=== PATIENT | female | born 1960 | race Caucasian/White ===

== ENCOUNTER 2018-07-29 12:09 | Day surgery (SDC) | payer OTHER, MEDICAID, SELFPAY ==
[2018-07-29] VITALS (9 sets, daily range): BP systolic 102–134; BP diastolic 52–75; PULSE 62–74; RESP 12–21; TEMP 36.3–36.8; O2SAT 97–100; BMI 25.2
--- NOTE | 2018-07-29 | PATH_ITS ---
[facility] Accession Number: [id number] . 01 Material submitted: . RANDOM COLON BIOPSIES . 02 Diagnosis: Random Colon Biopsies: Changes of minimally active colitis with multiple mucosal granulomas. Negative for significant architectural distortion. Negative for dysplasia and malignancy. See comment. . . . COMMENT: The changes present here are nonspecific. There is no evidence of chronicity to the process and the differential diagnosis would include possible early Crohn's disease, possible infection or possible drug reaction. Clinical correlation is suggested. . Case reviewed by Dr. Jennifer Earl, who concurs with the diagnosis. MRV/07/30/2018 . 02 Electronically signed: . Mikhail Castorena MD, Pathologist NPI- [id number] . 01 Gross description: . Received in one formalin-filled container, labeled with the patient's name and labeled random colon, are multiple less than 0.1 cm to 0.4 cm portions of tissue, which are filtered, wrapped, and entirely submitted in one cassette. ([id number]) /FRR . 02 Pathologist provided ICD-10: K52.9 . 02 CPT . 809615 Performed at: [address] [facility] [address], [place], [place] [id number] MD Norman Burnett MD Phone: [phone] Performed at: 02 [facility] [address] [place], [place] [id number] MD Jennifer Earl MD Phone: [phone]
[2018-07-29] MEDS: LACTATED RINGERS 1,000 ML 42 ML IV (12:35)
--- NOTE | 2018-07-29 14:04 | PM.PREOP ---
Pre-operative Note Interval Note History & Physical reviewed/Exam performed by Physician: Yes Changes to H&P: No
--- NOTE | 2018-07-29 14:44 | P.OP_ITS ---
Operative Date/Time/Diagnoses Date of procedure: 07/29/18 Time of procedure: 14:44 Pre-op diagnosis: Screening study Grade 3 internal hemorrhoids Post-op diagnosis: same Procedure & Clinicians Procedure: Colonoscopy with mucosal biopsies and internal hemorrhoid banding Same procedure as scheduled: Yes Indications: No prior colonoscopy Surgeon: Lily Baker Click Yes if Unassisted: Yes Anesthesia Type: General (Bertoni) Operative Notes Findings: 1. Adequate prep 2. Significant diverticulosis between 15 and 30 cm from the anal verge with large and small pockets and false passages. There is inflammation of the mucosa in the general region. No gross evidence of active colitis. 3. No polyps or mass lesions 4. No AV malformations 5. A single grade 3-4 internal hemorrhoid. Closure Type: not applicable Specimen(s): other (Random cold forceps mucosal biopsies) Estimated Blood Loss (mL): 1 Procedure in detail: After obtaining informed consent, the patient was brought to the GI suite and placed in the left lateral decubitus position on the examination table. After placement of appropriate monitors, the patient was given general anesthesia. A time out was held per SCOAP protocol. A digital rectal examination was performed and did not reveal any masses or o bstructing lesions. The colonoscope was gently passed into the patient's anus and the entire colon navigated to the level of the cecum with minimal difficulty. Once in the cecum, the scope was withdrawn being sure to go before and beyond all mucosal folds and prominences and get an excellent examination. The findings are noted above. At the level of the rectal vault, the scope was retroflexed and the internal anal canal was examined. The scope was straightened and air aspirated from the colon. The instrument was removed from the patient's body and this portion of the procedure was concluded. We continued with internal hemorrhoid banding. The retractor was placed in the patient's anal canal. We noted an enlarged hemorrhoid complex at the 6:00 a.m. Radian in lithotomy position. This was well above the dentate line. The mucosa and associated offending vein were grasped with Allis clamp and 2 bands deployed at the base of the complex. No bleeding was appreciated. The remainder of the internal hemorrhoids were grade 1 or 2. The patient was allowed to awaken from sedation without difficulty and taken to the post-anesthesia care unit in good condition. Complications: none Condition: stable Disposition: PACU Plan for aftercare: 1. Discharge to home 2. Follow-up with me in my office in 2 weeks
== END 2018-07-29 16:20 | disposition home or self-care (01) ==
PROVIDERS: Visit Provider Surgery
PROC: 0DJD8ZZ Inspection of Lower Intestinal Tract, Via Natural or Artificial Opening Endoscopic (ICD-10-PCS; CPT 45378; principal; 2018-07-29 13:15)
DX: Z12.11 Encounter for screening for malignant neoplasm of colon (principal); K64.2 Third degree hemorrhoids; K57.30 Diverticulosis of large intestine without perforation or abscess without bleeding; K52.9 Noninfective gastroenteritis and colitis, unspecified
CPT/HCPCS: 45380; 46221; 88305; J2250; J2704; J3010

== ENCOUNTER → 2019-06-15 14:47 | Outpatient (CLI) | payer OTHER, MEDICAID, SELFPAY | PROVIDERS: PCP Physician Assistant Medical; Visit Provider Orthopaedic Surgery | DX: Z01.812 Encounter for preprocedural laboratory examination (principal); Z01.818 Encounter for other preprocedural examination; R73.9 Hyperglycemia, unspecified; Z13.1 Encounter for screening for diabetes mellitus; N39.9 Disorder of urinary system, unspecified | CPT/HCPCS: 93005 ==

== ENCOUNTER 2019-08-05 11:37 | Inpatient (IN) | payer OTHER, MEDICAID, SELFPAY ==
[2019-07-26 08:44] VITALS: BMI 26.2
[2019-08-05] VITALS (13 sets, daily range): BP systolic 102–123; BP diastolic 59–71; PULSE 57–75; RESP 12–20; TEMP 36.1–36.9; O2SAT 92–98; BMI 26.2
--- NOTE | 2019-08-05 12:26 | DI.RAD.S_ITS ---
PROCEDURE: XR KNEE LT 1TO2V INDICATIONS: post op films TECHNIQUE: 2 view(s) of the knee acquired. COMPARISON: None. FINDINGS: Bones: Patient is status post knee joint arthroplasty. Hardware components are in expected positions. Visualized bony structures are intact. Soft tissues: Overlying postoperative changes are noted. IMPRESSION: Normal alignment after left total knee arthroplasty. Dictated by: Alonzo Cantrell M.D. on 08/05/2019 at 17:08 Approved by: Alonzo Cantrell M.D. on 08/05/2019 at 17:08
--- NOTE | 2019-08-05 12:31 | PM.PREOP ---
Pre-operative Note Interval Note History & Physical reviewed/Exam performed by Physician: Yes Changes to H&P: No
[2019-08-05] MEDS: VANCOMYCIN 1,000 MG/200 ML PIGGYBACK 200 MG IV (12:32)
[2019-08-05] MEDS: LACTATED RINGERS 1,000 ML 42 ML IV ×2 (12:32→15:19)
[2019-08-05] MEDS: CELECOXIB 200 MG CAPSULE PO (12:36)
[2019-08-05] MEDS: PREGABALIN 75 MG CAPSULE PO (12:36)
[2019-08-05] MEDS: ACETAMINOPHEN 325 MG TABLET 975 MG PO (12:36)
[2019-08-05] MEDS: CEFAZOLIN 2 GM/100 ML FROZ.PIGGY IV ×2 (13:31→20:12)
[2019-08-05] MEDS: DEXAMETHASONE 10 MG/ML VIAL 5 MG INJ (13:31)
[2019-08-05] MEDS: TRANEXAMIC ACID 1,000 MG VIAL 1000 MG INJ ×2 (13:45→15:17)
--- NOTE | 2019-08-05 13:58 | SUR.OPER ---
Supine on padded OR bed. Pillow under head, arms secured on padded armboards <90 degree abduction. Safety belt across torso. Non-operative leg secured with tape over blanket over lower leg. Operative leg secured in DeMayo positioner. Foam padded brace at thigh of operative leg.
[2019-08-05] MEDS: BUPIVACAINE LIPOSOME 266 MG/20 ML VIAL INJ (14:04)
[2019-08-05] MEDS: BUPIVACAINE 0.25% W/ EPI 30 ML VIAL 60 ML INJ (14:12)
--- NOTE | 2019-08-05 15:42 | PM.OP.1 ---
Operative Date/Time/Diagnoses Date of procedure: 08/05/19 Time of procedure: 13:42 Pre-op diagnosis: Severe left knee OA Post-op diagnosis: same Procedure & Clinicians Procedure: Left total knee arthroplasty, right foot plantar fasciitis injection Same procedure as scheduled: Yes Indications: The patient has had progressively worsening left knee pain with radiographic changes consistent with arthritis. Non-operative management has failed and the patient has requested total knee replacement. The risks, benefits and alternatives to surgery were discussed with the patient prior to proceeding. Risks discussed included, but were not limited to, failure to relieve pain, stiffness, infection, nerve damage, deep venous thrombosis, pulmonary embolism, stroke, coma, heart attack, permanent paralysis and , as well as the potential need for eventual revision of the prosthetic. Surgeon: Zahida Ferraro Casing Man: Alden Lino Anesthesia Type: General Operative Notes Findings: Severe left knee osteoarthritis, good stability Closure Type: primary Specimen(s): none sent Prosthetic devices, grafts, tissues, transplants, or devices: Ferraro and Nephew Journey BCS 2 size 5 femur, size 4 tibia, +9 poly, 35 by 7-1/2 mm patella Applied: drain(s) Estimated Blood Loss (mL): 250 Blood products transfused: none Tourniquet time (min): 78 Procedure in detail: The patient was seen in the pre-operative area, where the patient identified the left knee as the operative site and this was marked with my initials. The patient received pre-operative antibiotics, and was taken to the operating room and placed on the operative table in the supine position. After satisfactory anesthesia, a multimedia developer out was performed. The left leg was encircled with a tourniquet about the proximal thigh, and the leg was prepared from the toes to the tourniquet with ChloroPrep in the usual fashion and draped through sterile drapes. The leg was elevated and exsanguinated with Eschmark bandage and the tourniquet inflated to [250] mmHg pressure. The knee was approached through an approximately 18 cm incision centered over the patella and carried into the knee through a medial parapatellar arthrotomy. A portion of the medial and lateral meniscus was resected. Soft tissue was carefully mobilized around the patella the patella was measured with a caliper. Bone was resected from the patella and the patellar height was reconstituted with up an appropriate sized patellar component. A cover was then placed on the patella. A small amount of additional medial and lateral meniscus was resected. The distal femur was cut at 5?. A [+2] cut was used. It looked like an appropriate distal femoral cut and the cut was made without difficulty. An extramedullary guide was used for the tibial cut. 10 mm was resected off the least affected side.The tibia was prepared. The rotation was assessed. The patient was placed in extension residual medial and lateral meniscus as well as any residual bone was carefully resected. [No] additional tibia was resected. Hemostasis was achieved especially posteriorly. Additional local was injected into the posterior capsule. The extension gap was assessed and additional releases for gap balancing were performed as necessary. It was checked with the gap production superintendent. The femoral Sizer for measured resection as well as the gap production superintendent in flexion were used to assess the overall rotation and component positioning. The femur was sized at a size 5 and the rotational landmarks as well as the measured resection and gap balancing essentially placed the component in the same location. The rotation was assessed and the appropriate size femoral guide was placed on the distal femur and finishing cuts were made. There was no evidence of notching. The anterior, posterior and chamfer cuts were then made. The posterior osteophytes and soft tissues were then removed. The posterior capsule was injected with part of a mixture of 60 ml 0.25% Marcaine mixed with 20 ml Exparel for post operative pain control. The remainder of this mixture was injected into the capsule and subcutaneous tissues during cement curing. The tibial and femoral components were then placed and the knee placed through a range of motion. Range of motion was [0-130], with good stability throughout the range. The trials were then removed, and the tibia was finished. The bone was prepared with pulsatile lavage, and dried with a sponge. Cement was applied and the final prosthetics placed. Excess cement was removed during and after cement curing. A brief Betadine soak was performed. After confirming there was no extruded cement posteriorly, the final tibial insert was placed. The knee was copiously irrigated and the tourniquet deflated. Hemostasis was obtained with the Bovie. A drain was placed and brought out superolaterally. The capsule was closed with interrupted nonabsorbable suture. The subcutaneous layer was closed with barbed sutures, and the skin with a running 3-0 V-Lock suture and Surgical glue. An Aquacel Ag dressing was applied and the patient was taken to recovery having tolerated the procedure well. Complications: none Post-operative Condition: stable Disposition: Acute Care Plan for aftercare: The patient will be maintained on a standard total knee replacement protocol with weight bearing as tolerated. The patient will receive aspirin and sequential compression devices for DVT prophylaxis. The patient will be discharged home when safe for the home environment.
[2019-08-05] MEDS: OXYCODONE IR 5 MG TABLET PO ×2 (16:07→20:11)
--- NOTE | 2019-08-05 16:41 | PC.ADMIT ---
[facility] Admission Note: The patient,Ghazala Smith,59 y/o, was given written information regarding hospital policies, unit procedures and contact persons. Patient's smoking status: Never smoker. Vital Signs - 8 hr 08/05/19 12:05 08/05/19 15:42 08/05/19 15:47 Temperature 98.4 F 97.8 F Pulse Rate 68 66 65 Respiratory Rate 20 14 12 Blood Pressure 121/61 102/60 109/66 Pulse Oximetry 97 97 98 08/05/19 15:57 08/05/19 16:12 08/05/19 16:17 Temperature Pulse Rate 66 57 L 59 L Respiratory Rate 16 16 16 Blood Pressure 112/68 117/71 114/68 Pulse Oximetry 95 98 98 08/05/19 16:25 Temperature Pulse Rate 60 Respiratory Rate 14 Blood Pressure 113/67 Pulse Oximetry 93 Patient up from PACU, awake but drowsy. Answers questions appropriately. Was given percolone right before being brought up from PACU. Ice in place on Lf knee, drsg cdi.
[2019-08-05] MEDS: LACTATED RINGERS 1,000 ML 125 ML IV (16:48)
--- NOTE | 2019-08-05 18:01 | PC.NURSE ---
hemovac unclamped at 1750
[2019-08-05] MEDS: IBUPROFEN 400 MG TABLET PO ×2 (18:06→22:12)
[2019-08-05] MEDS: ASPIRIN EC 81 MG TABLET PO (20:11)
[2019-08-05] MEDS: ACETAMINOPHEN 325 MG TABLET 650 MG PO (20:11)
--- NOTE | 2019-08-06 00:36 | DI.CT.S_ITS ---
PROCEDURE: CT STROKE INDICATIONS: Dysarthria TECHNIQUE: Noncontrast 4.5 mm thick angled axial sections acquired from the foramen magnum to the vertex, with coronal reformats. For radiation dose reduction, the following was used: automated exposure control, adjustment of mA and/or kV according to patient size. COMPARISON: None. FINDINGS: Image quality: Excellent. CSF spaces: Basal cisterns are patent. No extra-axial fluid collections. Ventricles are normal in size and shape. Brain: No midline shift. No intracranial masses or hemorrhage. Arias-white matter interface is normal. Skull and face: Calvarium and visualized facial bones are intact, without suspicious lesions. Sinuses: Visualized sinuses and mastoids are clear. IMPRESSION: No acute intracranial disease process. This study fulfills neurological imaging criteria for inclusion or exclusion of acute stroke therapies based on available published neurological imaging guidelines. Dictated by: Jocelynn Ramirez MD, PhD on 08/06/2019 at 7:47 Approved by: Jocelynn Ramirez MD, PhD on 08/06/2019 at 7:49
--- NOTE | 2019-08-06 00:37 | DI.CT.S_ITS ---
PROCEDURE: CT ANGIO HEAD AND NECK INDICATIONS: New onset dysarthria TECHNIQUE: Pre-contrast 4.5 mm thick sections acquired from the foramen magnum to the vertex. After the administration of intravenous contrast, 1 mm thick sections acquired from the aortic arch through the [place] of [place]. Post-contrast 4.5 mm thick sections then re-acquired from the foramen magnum to the vertex. 3-dimensional qxqzgkd-etffqrfnr-ajtmkajwnd (MIP) and/or volume rendering reformats were acquired of the central intracranial vasculature and neck separately. COMPARISON: [facility], CT, CT STROKE, 08/06/2019, 0:36. FINDINGS: Image quality: Excellent. BRAIN: CSF spaces: Ventricles are normal in size and shape. Basal cisterns are patent. No extra-axial fluid collections. Brain: No midline shift. No intracranial bleeds or masses. Arias-white matter interface appears intact. Skull and face: Calvarium and facial bones appear intact, without suspicious lesions. Orbits appear normal. Sinuses: Sinuses and mastoids are clear. HEAD CT ANGIOGRAPHY: Anterior circulation: Intracranial internal carotid arteries are normal in size and flow. The flow within the paired anterior cerebral arteries is normal and symmetric. The flow within the middle cerebral arteries is normal and symmetric. The anterior communicating artery is seen. No aneurysms are seen. Posterior circulation: Visualized portions of the vertebral arteries demonstrate normal caliber, and join to form a normal appearing basilar artery. Flow within the posterior cerebral arteries is normal and symmetric. No aneurysms are seen. The dural sinuses demonstrate normal postcontrast enhancement. NECK CT ANGIOGRAPHY: Carotid system: The great vessels demonstrate a conventional anatomy as they arise from the aortic arch. The origins of the common carotid arteries appear patent. The common carotid arteries demonstrate normal caliber and courses. Calcified atherosclerotic plaque noted in the origin of the right internal carotid artery which does not cause measurable stenosis. Origin of the left internal carotid artery is fully patent. Posterior circulation: The origins of the vertebral arteries both appear widely patent. The more superior extracranial portions of both vertebral arteries also demonstrate normal courses and calibers. They join to form a normal appearing basilar artery. Soft tissues: Visualized neck soft tissues demonstrate no suspicious abnormalities. Bones: No suspicious bony lesions. Spine degenerative disc disease and facet arthropathy. Visualized cervical spine appears normally aligned. IMPRESSION: 1. No acute intracranial disease process. 2. No large vessel occlusion, vascular stenosis, vascular dissection or aneurysm. Any quantitative measurements of stenosis were performed using NASCET criteria. Dictated by: Jocelynn Ramirez MD, PhD on 08/06/2019 at 8:01 Approved by: Jocelynn Ramirez MD, PhD on 08/06/2019 at 8:07
--- NOTE | 2019-08-06 00:37 | PC.NURSE ---
Addendum entered by Chanel Kate R.N. 08/06/19 01:21: Patient back from CT at 0110. Patient was teary, worried that she was being a difficult patient. I assured her this was not the case and we were just trying to take good care of her. Settled her back into bed. Patient has been up to use bedside commode pivot assist. Dressing is clean/dry/intact. CMS is intact. Pain is described as pressure. SCD's are applied bilaterally. IS encouraged. Bed is low and locked, call light within reach, bed alarm on. Original Note: 1031 patient assessment, patient seemed to be have some slurring of speech, difficulty finding words, said she is having a hard time swallowing and no sore throat, also that her right hand had some tingling, and was dizzy when standing. Dr. Lozano director of slot operations doctor called and was told about the patient's status at 0015, and my recommendation was to have the hospitalist doctor look at her and evaluate her. I transferred the phone call to Davon MEYER hospitalist. At 0045, Patient was taken to CT.
--- NOTE | 2019-08-06 00:44 | P.CONS_ITS ---
History of Present Illness Consult details Date Patient Seen: 08/06/19 Time Patient Seen: 00:38 Chief complaint: 14895 Left Total Knee Arthroplasty *OPB* Reason for consult: Possible Stroke Requesting provider: Jose Lozano Narrative: Ms. Ghazala Smith is a 59-year-old female with history significant for hyperlipidemia, vertigo and osteoarthritis status post left total knee arthroplasty earlier today. Nursing is concerned related to dysarthria and possible stroke and contacted Dr. Fernandez who requested hospitalist consult. On evaluation of the patient she is alert and conversant the with slurred speech and difficulty articulating. She additionally reports changes swallowing but denies sore throat and experience tingling in the left hand. The patient denies headache or visual changes and has no aphasia. She has no complaints of extremity weakness and is able to stand without disequilibrium. Patient reports her symptoms of dysarthria has been since her surgery returning to the floor at approximately 5:30 this afternoon. Last known normal is prior to surgery. Patient is afebrile with temperature of 97.5?, heart rate of 75, blood pressure 123/60, respirations of 18 saturating 95% on 2 L nasal cannula. NIH scoring is completed receiving a score of 2, 1 point for dysarthria, 1 point for left hand numbness. Meds Home Medications and Allergies Home Medications Medication Instructions Recorded Confirmed Type cholecalciferol (vitamin D3) 25 2,000 unit PO DAILY 07/14/18 07/26/19 History mcg (1,000 unit) capsule vitamin B complex 1 tab PO DAILY 07/14/18 07/26/19 History naproxen 500 mg PO DAILY PRN 07/26/19 07/26/19 History Allergies Allergy/AdvReac Type Severity Reaction Status Date / Time No Known Drug Allergies Allergy Unverified 07/14/18 10:51 Review of Systems Review of Systems Narrative: All systems reviewed and found unremarkable under discussed in the HPI above. Exam Vital Signs (past 8 hours): - 08/05/19 17:00 08/05/19 17:30 08/05/19 18:30 Temperature 97.1 F L 97.1 F L 97.0 F L Pulse Rate 61 64 68 Respiratory Rate 16 17 18 Blood Pressure 122/71 120/66 118/67 Pulse Oximetry 94 96 92 08/05/19 19:50 Temperature 97.5 F L Pulse Rate 75 Respiratory Rate 18 Blood Pressure 123/60 Pulse Oximetry 95 Oxygen Delivery Method Nasal Cannula Oxygen Flow Rate 2 Narrative Exam Narrative: GENERAL APPEARANCE: well developed, well nourished, in no acute distress. HEENT: Symmetrical facies, no ptosis, PERRLA, conjunctiva clear, EOMs intact without nystagmus, no visual field deficits, mucous membranes are moist and pink. NECK/THYROID: neck supple, no JVD, no carotid bruit, no thyromegaly, trachea midline. LYMPH NODES: no cervical or supraclavicular lymphadenopathy. SKIN: [place], warm and dry, no visible lesions, rashes, ulcerations or petechiae. HEART: regular rate and rhythm, S1-S2, no murmur, no rubs or gallops, brisk capillary refill, no edema LUNGS: clear to auscultation bilaterally, no coarseness crackles or wheezing, no cough present CHEST: Symmetrical movement, no accessory muscle use, good tidal volume. ABDOMEN: Soft, no distention, no abdominal tenderness, no guarding or peritoneal signs, no organomegaly, no flank or suprapubic tenderness, active bowel tones. BACK: Normal curvature, nontender to palpation, no CVA tenderness on percussion EXTREMITIES: Surgical dressing with Karri wrap to left leg, moves all extre mities, no extremity drift. NEUROLOGIC: AAO x4, follows commands, no aphasia, good recall, cranial nerves II-XII grossly intact, altered sensation left hand, no extinction, engraving press operator are equal bilateral, no ataxia, hearing grossly normal to speech. PSYCH: Anxious, tearful, cooperative. Assessment & Plan Assessment & Plan narrative: This is a 59-year-old female who is postop same day left total knee arthroplasty. The patient reports altered speech stating this is not her normal occurring since surgery. Last known normal is prior to surgery at approximately 1:00 p.m. 1. Possible stroke, acute, postoperative, active Patient reports feeling well with no speech difficulty prior to surgery, since surgery difficulty speaking and swallowing, no coughing with thin liquids. NIH score is 2, 1 point for dysarthria, 1 point for altered sensation left hand. Serial neurologic evaluations ordered Ordered stat head CT stroke and CT angio head and neck. Ordered stat CBC, BMP and TSH. Patient passes bedside swallow eval with no coughing. Patient already receiving physical and occupational therapies per orthopedics Speech therapy evaluation. MR stroke protocol in the morning. Ordered Echocardiogram 2. Hyperlipidemia, chronic, active History of elevated cholesterol not currently on medication. Ordered lipid panel. Ordered atorvastatin 20 mg daily. 3. Status post left total knee arthroplasty, postop day 0, active Patient is mobilizing from bed to commode with use of walker without disequilibrium. Postoperative care per the orthopedic team. The hospitalist team is consulted for a change in neurological status with dysarthria and left hand numbness following total knee arthroplasty earlier today. Thank you for allowing is to participate in the care of this pleasant woman. We will continue to follow the patient.
[2019-08-06] MEDS: IBUPROFEN 400 MG TABLET PO ×6 (01:33→20:15)
[2019-08-06] MEDS: LACTATED RINGERS 1,000 ML 125 ML IV (01:33)
[2019-08-06 01:52] LABS: Add Manual Diff / Slide Review NO; Basophils Absolute Auto 0 /uL (0-100); Eosinophils Absolute Auto 0 /uL (0-450); Hematocrit 34.3 % (36-46); Hemoglobin 11.7 g/dL (12.0-16.0); Lymphocytes Absolute Auto 400 /uL (1100-4500); Lymphocytes Percent Auto 4.8 % (25-40); Mean Corpuscular HGB Conc 34.2 % (30-36); Mean Corpuscular Hemoglobin 30.8 PG (26-34); Mean Corpuscular Volume 89.9 fL (80-100); Monocytes Absolute Auto 200 /uL (0-900); Monocytes Percent Auto 2.8 % (3-14); Neutrophils Absolute Auto 8000 /uL (1500-7000); Neutrophils Percent Auto 92.4 % (50-75); Platelet Count 237 X10^3/uL (150-400); Red Blood Cell Count 3.81 X10^6/uL (4.0-5.2); Red Cell Distribution Width 12.4 % (11.6-14.8); White Blood Cell Count 8.7 X10^3/uL (4.5-11.0)
[2019-08-06 01:56] LABS: INR 1.1 (0.9-1.3)
[2019-08-06 01:59] LABS: PTT Partial Thromboplastin Tim 32 SECONDS (26.4-36.2)
--- NOTE | 2019-08-06 02:00 | DI.MRI.S_ITS ---
PROCEDURE: MR STROKE Pre- and post-contrast brain MRI, non-contrast brain MR angiogram, pre- and postcontrast neck MR angiogram INDICATIONS: Possible stroke TECHNIQUE: Brain: Noncontrast axial T1 spin echo, axial T2 fast spin echo, sagittal and axial FLAIR, coronal T2 fast spin echo, axial gradient echo, axial diffusion and ADC through the brain. After the administration of contrast, axial 3D VIBE of the cranial vasculature and brain. Brain MRA: Non-contrast 3-D time of flight MR angiogram, with multiple tqpargo-rolsdozxz-ecnlmenjfl (MIP) reformats performed. Neck MRA: Axial and sagittal TruFISP through the neck. Coronal dynamic MR angiogram during administration of contrast in the arterial and venous phases, with 3-dimenstional pufeybb-muggziqme-sxseleymfu (MIP) reformats constructed from subtraction images. COMPARISON: [facility], CT, CT ANGIO HEAD AND NECK, 08/06/2019, 0:36. [facility], CT, CT STROKE, 08/06/2019, 0:36. FINDINGS: Image quality: Excellent. BRAIN: CSF spaces: Ventricles are normal in size and shape. Basal cisterns are patent. No extra-axial fluid collections. Brain: No intracranial bleeds or mass effects. Mild periventricular white matter chronic small vessel excre changes are present. Arias-white matter interface is normal. Diffusion weighted images show no acute ischemic insults. Brainstem appears normal. Normal intravascular flow voids are present. No abnormal intracranial enhancement. Skull and face: Calvarial marrow signal is normal. Orbits appear normal. Sinuses: Sinuses and mastoids are clear. BRAIN MR ANGIOGRAM: Anterior circulation: Intracranial internal carotid arteries are normal in size and enhancement. The flow within the paired anterior cerebral arteries is normal and symmetric. The flow within the middle cerebral arteries is normal and symmetric. The anterior communicating artery is seen. No stenoses, occlusions, or aneurysms. Posterior circulation: The visualized portions of the vertebral arteries demonstrate normal caliber, and join to form a normal appearing basilar artery. The flow within the posterior cerebral arteries is normal and symmetric. No stenoses, occlusions, or aneurysms. NECK MR ANGIOGRAM: There is lack of contrast in neck vessels due to failed contrast injection. The cervical carotid arteries and vertebral arteries are not well-visualized. Miscellaneous: Subclavian arteries appear patent. Pre-contrast images through the neck show no soft tissue abnormalities. Mild degenerative disc disease in cervical spine. There is trace bilateral effusions. IMPRESSION: BRAIN MRI: 1. No acute intracranial abnormalities. BRAIN MR ANGIOGRAM: 1. There is appearance of narrowing of the cavernous segment of the right internal carotid artery. The appearance could be caused by artifacts. Unfortunately, contrast enhanced neck angiogram failed due to unsuccessful contrast injection. 2. Otherwise no high-grade stenosis or occlusion in anterior circulations. 3. No high-grade stenosis or occlusion in posterior circulations. NECK MR ANGIOGRAM: 1. Neck angiogram has failed due to unsuccessful contrast injection. 2. Trace pleural effusions bilaterally. Dictated by: Parish Krishnamurthy M.D. on 08/06/2019 at 11:30 Approved by: Parish Krishnamurthy M.D. on 08/06/2019 at 11:45
[2019-08-06 02:01] LABS: Blood Urea Nitrogen 12 mg/dL (7-17); Calcium 8.9 mg/dL (8.4-10.2); Carbon Dioxide 28 mmol/L (22-32); Chloride 103 mmol/L (98-107); Estimated Glomerular Filt Rate > 60.0 mL/min (>60); Glucose 191 mg/dL (80-110); HEMOLYSIS < 15 (0-50); Potassium 4.2 mmol/L (3.4-5.1); Sodium 139 mmol/L (137-145)
[2019-08-06 02:11] LABS: Cholesterol 213 mg/dL (140-199); HDL Cholesterol 44 mg/dL (40-60); LDL Cholesterol Calculated 152 mg/dL (<100); Triglycerides 85 mg/dL (35-150)
[2019-08-06 02:43] LABS: Thyroid Stimulating Hormone 0.85 uIU/mL (0.47-4.68)
[2019-08-06] MEDS: CEFAZOLIN 2 GM/100 ML FROZ.PIGGY IV (05:32)
[2019-08-06 05:50] VITALS: BP 120/62; PULSE 16; RESP 16; TEMP 36.2; O2SAT 97
--- NOTE | 2019-08-06 07:45 | P.PN_ITS ---
Subjective Subjective Date Patient Seen: 08/06/19 Time Patient Seen: 07:45 Interval history: Patient is POD#1 s/p right TKA with Dr. Ferraro. She had episode of dysarthria overnight that was noticed by nursing staff with concerns of CVA. At Dr. Lozano's request hospitalist was consulted and CT head was ordered and negative. She is pending MRI, echocardiogram, and speech evaluation. Pain has been minimal and well controlled. Has been up to void. No chest pain or pieter rtness of breath. Exam Vital Signs (past 8 hours): - 08/06/19 05:50 Temperature 97.2 F L Pulse Rate 16 L Respiratory Rate 16 Blood Pressure 120/62 Pulse Oximetry 97 Oxygen Delivery Method Nasal Cannula Oxygen Flow Rate 0 Narrative Exam Narrative: 59 year old female resting in bed. Alert and oriented in no acute distress. Some difficulty with word finding and expressing speech. Dressing in place over knee is CDI. Patient able to flex and extend the foot. Palpable pedal pulse. Calves soft, compressible. Objective Labs Result Diagrams: 08/06/19 01:43 08/06/19 01:43 Labs: Laboratory Results - last 24 hr 08/06/19 08/06/19 08/06/19 01:43 01:43 01:43 WBC 8.7 RBC 3.81 L Hgb 11.7 L Hct 34.3 L MCV 89.9 MCH 30.8 MCHC 34.2 RDW 12.4 Plt Count 237 Neut % (Auto) 92.4 H Lymph % (Auto) 4.8 L [place] % (Auto) 2.8 L Eos % (Auto) 0.0 L Baso % (Auto) 0.0 Neut # (Auto) 8000 H Lymph # (Auto) 400 L [place] # (Auto) 200 Eos # (Auto) 0 Baso # (Auto) 0 PT 13.0 H INR 1.1 APTT 32 Sodium 139 Potassium 4.2 Chloride 103 Carbon Dioxide 28 BUN 12 Creatinine 0.60 Estimated GFR > 60.0 BUN/Creatinine Ratio 20.0 Glucose 191 H Calcium 8.9 Triglycerides Cholesterol LDL Cholesterol, Calc HDL Cholesterol TSH 08/06/19 08/06/19 01:43 01:43 WBC RBC Hgb Hct MCV MCH MCHC RDW Plt Count Neut % (Auto) Lymph % (Auto) [place] % (Auto) Eos % (Auto) Baso % (Auto) Neut # (Auto) Lymph # (Auto) [place] # (Auto) Eos # (Auto) Baso # (Auto) PT INR APTT Sodium Potassium Chloride Carbon Dioxide BUN Creatinine Estimated GFR BUN/Creatinine Ratio Glucose Calcium Triglycerides 85 Cholesterol 213 H LDL Cholesterol, Calc 152 H HDL Cholesterol 44 TSH 0.85 Assessment & Plan Assessment & Plan narrative: Stroke work up has been negative so far, still pending MRI, echo, and speech. We appreciate hospitalist assistance with this complex patient. She is to mobilize with PT. Continue present pain management. ASA for DVT prophylaxis. Discharge to home in the next 1-2 days if negative workup. Quality VTE Deep Vein Thrombosis/Pulmonary Embolism Present on Admission: No
[2019-08-06 08:00] VITALS: BP 121/65; PULSE 70; RESP 18; TEMP 36.4; O2SAT 98
[2019-08-06] MEDS: ACETAMINOPHEN 325 MG TABLET 650 MG PO ×3 (09:30→20:15)
[2019-08-06] MEDS: ASPIRIN EC 81 MG TABLET PO ×2 (09:30→20:15)
--- NOTE | 2019-08-06 11:14 | PC.NURSE ---
PATIENT'S SPEECH SOUNDS THICK THIS AM BUT COMPLETELY UNDERSTANDABLE, OTHERWISE ALERT AND ORIENTED. DENIES TINGLING IN EXTREMITIES. MACHINIST JOB SETTER STRONG. NO FACIAL DROOP, NO ARM DRIFT. DR. REYNOSO UPDATED ON EVENTS OVERNIGHT. SHE WILL COME IN TO SEE PATIENT AT SOME POINT THIS SHIFT. PATIENT LEFT FOR MRI AT 1030. ECHO WAS GOING TO SEE HER AT 0900 BUT SHE FELT THE URGE FOR BM AND WAS CONCERNED IT WAS DIARRHEA. STATES SHE HAS HAD SAME X3 WKS, ONCE A DAY IN THE MORNING. ECHO SAID THEY WOULD TRY TO COME BACK LATER. PATIENT WAS NOT ABLE TO HAVE A BM THIS AM AFTER ALL.
--- NOTE | 2019-08-06 11:30 | PT.IIE ---
Current Diagnoses Unilateral primary osteoarthritis, left knee (08/05/19) Surgery Performed Operation Date: 08/05/19 13:45 Actual Procedures p Total Knee Arthroplasty & Right foot plantar cortisone injection(Left) - Zahida Ferraro MD Surgical History (Last Updated 07/26/19 @ 09:10 by Cherelle Saldaña, RN) Hx of arthroscopy of left knee (Acute) Medical History (Last Updated 07/26/19 @ 09:29 by Cherelle Saldaña RN) Depression (Acute) Eczema (Acute) Elevated cholesterol (Acute) Environmental allergies (Acute) Introvert (Acute) Osteoarthritis (Acute) Plantar fasciitis of right foot (Acute) Psoriasis (Acute) Skin cancer (Acute) Vertigo (Acute) Physical Therapy Inpatient Evaluation/Re-Eval M1 PT/OT-IP Prior Functional Status Start: 08/06/19 13:19 Freq: NEEDED Status: Active Protocol: Document 08/06/19 11:30 AB (Rec: 08/06/19 13:47 AB [id number]) Medical Review Prior Functional Status Medical History Reviewed Yes Communication able to make needs known Mobility and Gait pt stated that she is independent with all mobilities and ambulation without AD Social History Household Members none Living Arrangements House Number of Floors (Floors) Two Floors Number of Stairs To Enter/Railing? 4 steps with L rail ascending; pt stated that she will stay on main level of the house pt plans to stay at her friend 's (Jeimy)house initially and has 2 platform steps to enter. pt does not know pt's home set up Home Environment High Toilet,Tub/Shower Home Equipment Front Wheel Walker,Straight Cane M2 PT-IP Current Condition Start: 08/06/19 13:19 Freq: NEEDED Status: Active Protocol: Document 08/06/19 11:30 AB (Rec: 08/06/19 13:47 AB [id number]) Physical Therapy Current Condition Current Condition Evaluation Date 08/06/19 Treatment Diagnosis s/p L TKA; difficulty in walking Onset Date 08/05/19 Weight Bearing Status Weight Bearing Status Weight Bear as Tolerated Allowed Weight Bearing Amount (enter % WBAT LLE or #) (%) M3 PT-IP Subjective Start: 08/06/19 13:19 Freq: NEEDED Status: Active Protocol: Document 08/06/19 11:30 AB (Rec: 08/06/19 13:47 AB [id number]) Subjective Physical Therapy Visit Type Type Initial Evaluation Visit Start Time 11:30 Visit Stop Time 12:08 Total Visit Minutes 38 Number of PACKAGING CLERK Visits 0 Physical Therapy Visit Comments Patient Comments pt agreeable to do PT Therapy Pain Assessment Pain When Pain Assessed At Rest Pain Present Pain Present Pain Reported Location Left Knee Intensity 3 Scale Used increases to 6/10 with mobility Pain Management Techniques Apply Cold,Re-positioning M4 PT-IP Mobility and Gait Start: 08/06/19 13:19 Freq: NEEDED Status: Active Protocol: Document 08/06/19 11:30 AB (Rec: 08/06/19 13:47 AB [id number]) PT-Bed Mobility Assessment Supine to Sit Supine to Sit Standby Assistance Sit to Supine Sit to Supine Standby Assistance Scooting Scooting to Edge of Bed Standby Assistance PT-Transfer Assessment Sit to and From Stand Sit to and from Stand Minimal Assistance,1 Person Assistance,Use of Upper Extremities Equipment Transfer Assistive Device Gait Belt,Front Wheeled Walker Orthotic/Prosthetic Devices or Brace: No Transfers Transfer Destination Bed,Chair Transfer Technique ambulated using FWW Transfer Ability Level of Assist Minimal Assistance Comments Mobility Comments pt requires cues with all tasks. seems slow to execute instructions. completed sit to stand from the chair min A and cues. ambulated to the bed using FWW min A. completed supine <> sit SBA and cues. pt presents with difficulty completing task and requires increase time to complete time. pt ambulated in room ~ 25 ft. has increase pain but pt does not want to take pain meds. pt ambulated back to the chair . positioned in chair. call light and table placed within reach. Gait Assessment Gait Gait Assistance Required: Minimum Assistance,1 Person Assist Distance (Feet) 25 Able to Maintain Weight Bearing Status Yes During Gait Assistive Devices Assistive Device Gait Belt,Front Wheeled Walker Orthotic/Prosthetic Devices or Brace: No Gait Deviations General Gait Pattern Antalgic,Decreased Stride Length,Decreased Feet Clearance,Step-to Gait Factors Limiting Gait Function Factors Limiting Gait Function Decreased Activity Tolerance, Decreased Strength,Difficulty Following Directions,Limited Range of Motion,Pain,Poor Balance,Poor Safety Awareness PT-Balance Assessment Sitting Balance and Reactions Static Sitting Balance Ability Good Dynamic Sitting Balance Ability Good Standing Balance and Reactions Static Standing Balance Ability Fair Dynamic Standing Balance Ability Fair Device Used FWW M5 PT-IP Objective Assessments Start: 08/06/19 13:19 Freq: NEEDED Status: Active Protocol: Document 08/06/19 11:30 AB (Rec: 08/06/19 13:47 AB [id number]) Orientation Orientation/Cognition Level of Alertness Alert Orientation Name,Date,Place,Situation Safety Awareness Decreased Safety Awareness Memory Description Short Term Impaired Gross Range of Motion Lower Extremity ROM Assessment Left Impaired Impairments L knee flexion ~ 90 deg Strength Lower Extremity Strength Assessment Left Impaired Hip 3+/5 Knee 3+/5 Sensation Assessment Sensation Gross Sensation WNL Muscle Tone Muscle Tone WNL Yes M6 PT-IP Treatment Start: 08/06/19 13:19 Freq: NEEDED Status: Active Protocol: Document 08/06/19 11:30 AB (Rec: 08/06/19 13:47 AB [id number]) Physical Therapy Treatment Education Education Provided Precautions,Weight Bearing Status,Post-Op Packet,Safety M7 PT-IP Assessment and Plan Start: 08/06/19 13:19 Freq: NEEDED Status: Active Protocol: Document 08/06/19 11:30 AB (Rec: 08/06/19 13:47 AB [id number]) PT Summary Assessment and Plan Potential Rehabilitation Potential Good Status of Condition at Evaluation Stable Summary Impairments Pain,ROM,Strength,Balance, Coordination,Sensation,Tone, Cognition,Bed Mobility, Transfers,Gait,Activity Tolerance Assessment Summary pt requiring min A with mobility using FWW but has decrease safety awareness. pt plans to go to her friend's house and her friend Jeimy will assist her but pt stated that she plans to just stay there until friday. d/c plan depending on progress. pt may require homehealth PT . Goals Bed Mobility Goal Independent Transfer Goal Independent,Front Wheeled Walker Gait Goal Independent,Front Wheel Walker Gait Distance 150 Other Goals up/down 2 platform steps using FWW SBA up/down 4 steps L rail ascending SBA Days to Meet Goals 10 Frequency of Treatment Frequency Of Treatment Twice a Day Treatment Plan Physical Therapy Treatment Plan Bed Mobility Training,Transfer Training,Gait Training, Therapeutic Exercise,Balance Retraining,Post Op Education, Discharge Planning,Hot or Cold Pack,Neuromuscular Re-ed, Coordination Retraining,Manual Therapy Recommendations To Nursing Amount of Assist Needed 1 Person Assist Discharge Recommendations PT Discharge Recommendations Home with 06/01 Assist,Home Health Transportation Needs at Discharge Private Vehicle
[2019-08-06 12:00] VITALS: BP 108/61; PULSE 75; RESP 18; TEMP 36.8; O2SAT 99
--- NOTE | 2019-08-06 13:34 | P.PN_ITS ---
Subjective Subjective Date Patient Seen: 08/06/19 Time Patient Seen: 13:34 Interval history: Ms. Ghazala Smith is a 59-year-old female with history significant for hyperlipidemia, vertigo and osteoarthritis status post left total knee arthroplasty yesterday. Overnight she was evaluated for possible TIA versus CVA in the setting of dysarthria and left hand numbness. Today her symptoms have improved, she still feels her speech isn't right and feels slightly foggy. Her left hand numbness has improved, she states that it comes back when she lays on her left side. She further endorsed feeling that her speech was not right after she was given medications just prior to surgery. She last received a dose of oxycodone at 8 p.m. last night. She denies any head ache, vision changes, sore throat, neck pain, back pain. She felt like she did well with physical therapy today and she has no other complaints. Exam Vital Signs (past 8 hours): - 08/06/19 05:50 08/06/19 08:00 08/06/19 12:00 Temperature 97.2 F L 97.5 F L 98.2 F Pulse Rate 16 L 70 75 Respiratory Rate 16 18 18 Blood Pressure 120/62 121/65 108/61 Pulse Oximetry 97 98 99 Oxygen Delivery Method Nasal Cannula Oxygen Flow Rate 0 Narrative Exam Narrative: GENERAL APPEARANCE: well developed, well nourished, in no acute distress but mildly anxious when discussing medical issues. Reading a book in hospital bedside chair. HEENT: Symmetrical facies, no ptosis, PERRLA, conjunctiva clear, EOMs intact without nystagmus, no visual field deficits, mucous membranes are moist and pink. NECK/THYROID: neck supple, no JVD, no carotid bruit, no thyromegaly, trachea midline. LYMPH NODES: no cervical or supraclavicular lymphadenopathy. SKIN: Alanreed, warm and dry, no visible lesions, rashes, ulcerations or petechiae. HEART: regular rate and rhythm, S1-S2, no murmur, no rubs or gallops, brisk capillary refill, no edema LUNGS: clear to auscultation bilaterally, no coarseness crackles or wheezing, no cough present CHEST: Symmetrical movement, no accessory muscle use, good tidal volume. ABDOMEN: Soft, no distention, no abdominal tenderness, no guarding or peritoneal signs, no organomegaly, no flank or suprapubic tenderness, active bowel tones. BACK: Normal curvature, nontender to palpation, no CVA tenderness on percussion EXTREMITIES: Surgical dressing with Karri wrap to left leg, moves all extremities, no extremity drift. NEUROLOGIC: AAO x4, follows commands, no aphasia, good recall, cranial nerves II-XII grossly intact, normal sensation to left hand at this time, no extinction, medicine technologist are equal bilateral, no ataxia, hearing grossly normal to speech. No difficulties with word finding at this time. PSYCH: Anxious, cooperative. Objective Labs Result Diagrams: 08/06/19 01:43 08/06/19 01:43 Labs: Laboratory Results - last 24 hr 08/06/19 08/06/19 08/06/19 01:43 01:43 01:43 WBC 8.7 RBC 3.81 L Hgb 11.7 L Hct 34.3 L MCV 89.9 MCH 30.8 MCHC 34.2 RDW 12.4 Plt Count 237 Neut % (Auto) 92.4 H Lymph % (Auto) 4.8 L [place] % (Auto) 2.8 L Eos % (Auto) 0.0 L Baso % (Auto) 0.0 Neut # (Auto) 8000 H Lymph # (Auto) 400 L [place] # (Auto) 200 Eos # (Auto) 0 Baso # (Auto) 0 PT 13.0 H INR 1.1 APTT 32 Sodium 139 Potassium 4.2 Chloride 103 Carbon Dioxide 28 BUN 12 Creatinine 0.60 Estimated GFR > 60.0 BUN/Creatinine Ratio 20.0 Glucose 191 H Calcium 8.9 Triglycerides Cholesterol LDL Cholesterol, Calc HDL Cholesterol TSH 08/06/19 08/06/19 01:43 01:43 WBC RBC Hgb Hct MCV MCH MCHC RDW Plt Count Neut % (Auto) Lymph % (Auto) [place] % (Auto) Eos % (Auto) Baso % (Auto) Neut # (Auto) Lymph # (Auto) [place] # (Auto) Eos # (Auto) Baso # (Auto) PT INR APTT Sodium Potassium Chloride Carbon Dioxide BUN Creatinine Estimated GFR BUN/Creatinine Ratio Glucose Calcium Triglycerides 85 Cholesterol 213 H LDL Cholesterol, Calc 152 H HDL Cholesterol 44 TSH 0.85 Assessment & Plan Assessment & Plan narrative: This is a 59-year-old female who is postop left total knee arthroplasty, medicine was consulted for dysarthria starting after surgery. 1. Dysarthria, acute, postoperative, improving Patient reports feeling well with no speech difficulty prior to surgery, after surgery she felt word-finding was difficult, and did have some slurred speech on initial evaluation as well some left hand numbness. These have seemingly resolved except for some difficulty word-finding. Suspect this is due to pain medications as she did have a negative MRI today. She also reported some difficulties with speech after being given medications prior to her surgery. She did receive a dose of oxycodone at around 8:00 a.m. last night. Patient already receiving physical and occupational therapies per orthopedics Speech therapy evaluation pending. MR stroke did not show arteriograms as well as hoped given issues with contrast injection, however no evidence of acute infarcts. There is possible narrowing noted in her right internal carotid artery but this may be artifact. Otherwise this was an unremarkable MRI. Avoid opiate therapy if possible Left hand numbness is intermittent and appears positional. Likely musculos keletal in nature. 2. Hyperlipidemia, chronic, active LDL of 152, total cholesterol 213. HDL 44. Ordered atorvastatin 20 mg daily, however patient does not wish to continue this medication. 3. Status post left total knee arthroplasty, postop day 0, active Patient is mobilizing from bed to commode with use of walker without disequilibrium. Postoperative care per the orthopedic team. Thank you for allowing us to participate in the care of this patient. Given negative MRI, improvement in symptoms, no further evaluation is needed at this time and symptoms are felt most likely due to medications. Patient should follow-up with her primary care provider to discuss statin medication for her cholesterol. She does not require aspirin or additional medications for TIA/CVA at this time given low likelihood based on all available data. Hospitalist team will sign off at this time, do not hesitate to contact us with additional questions or concerns or if symptoms recur. Quality VTE Deep Vein Thrombosis/Pulmonary Embolism Present on Admission: No
--- NOTE | 2019-08-06 14:07 | ST.IPIE ---
Current Diagnoses Unilateral primary osteoarthritis, left knee (08/05/19) Past Medical History (Last Updated 07/26/19 @ 09:29 by Cherelle Saldaña RN) Depression (Acute Medical) Eczema (Acute Medical) Elevated cholesterol (Acute Medical) Environmental allergies (Acute Medical) Introvert (Acute Medical) Per pt, flat affect. Osteoarthritis (Acute Medical) Plantar fasciitis of right foot (Acute Medical) Psoriasis (Acute Medical) Skin cancer (Acute Medical) left shoulder Vertigo (Acute Medical) ST IP Initial Evaulation Report BATH MIXER Motor Speech Evaluation Start: 08/06/19 13:53 Freq: Status: Active Protocol: Document 08/06/19 13:54 TLC (Rec: 08/06/19 14:06 TLC [id number]) Motor Speech Evaluation Session Time Total Visit Minutes 40 Setting Setting Acute Care Next Note Type Next Note Type Treatment Note Patient History Source: [employer] ([employer]). Patient History Patient s/p knee surgery with new onset dysarthria yesterday and difficulty swallowing. MRI was negative. Subjective Observations Subjective Patient was awake, alert and conversant. Oral Motor Lips Function Mild Impairment Observation at rest Symmetrical Alternating pucker/retraction Reduced speed Involuntary Movement None Tongue Function Mild Impairment Observations at rest WFL Protrusion Symmetrical Lateralization WFL Involuntary Movement None Jaw Function WFL Involuntary movement Patient reports jaw chattering last night and this morning, since resolved Soft Palate Function WNL Respiration/Phonation Diadochokinetic Rates P^T^K^ Quality Mild Impairment Comments Slow and effortful Speech Intelligibility Conversation Severity WNL Awareness/Strategy Use Findings Assessment Details Assessment Mild impairments in lingual strength and coordination of unknown cause. Patient's speech is not quite back to her baseline, though has improved significantly since yesterday. Oral motor exam revealed difficulty with lingual coordination for diadochokinesis tasks and for performing tasks such as clicking her tongue. Patient teared up saying Why can't I do that?. Otherwise, grossly normal exam with symmetrical features. No overt signs of dysphagia, but some difficulty with bolus transport of meds this AM per patient. Recommend patient follow-up with her surgeon and/or PCP if symptoms persist or worsen. No speech therapy recommended. Patient is currently implementing strategies as needed to compensate for impairments. Speech is intelligible for communicating with staff and she denies ongoing difficulty with swallowing. Prognosis Rehabilitation Potential Good Recommendations Treatment Recommended No Patient/Family Education Education Patient Understanding
--- NOTE | 2019-08-06 14:21 | PT.IPTN ---
Current Diagnoses Unilateral primary osteoarthritis, left knee (08/05/19) Surgery Performed Operation Date: 08/05/19 13:45 Actual Procedures p Total Knee Arthroplasty & Right foot plantar cortisone injection(Left) - Zahida Ferraro MD Physical Therapy Treatment Note M2 PT-IP Current Condition Start: 08/06/19 13:19 Freq: NEEDED Status: Active Protocol: Document 08/06/19 11:30 AB (Rec: 08/06/19 13:47 AB [id number]) Physical Therapy Current Condition Current Condition Evaluation Date 08/06/19 Treatment Diagnosis s/p L TKA; difficulty in walking Onset Date 08/05/19 Weight Bearing Status Weight Bearing Status Weight Bear as Tolerated Allowed Weight Bearing Amount (enter % WBAT LLE or #) (%) M3 PT-IP Subjective Start: 08/06/19 13:19 Freq: NEEDED Status: Active Protocol: Document 08/06/19 13:22 LJ (Rec: 08/06/19 14:20 LJ [email or web address]) Subjective Physical Therapy Visit Type Type Treatment Note Visit Start Time 13:22 Visit Stop Time 13:44 Total Visit Minutes 22 Number of FUELER Visits 1 Physical Therapy Visit Comments Patient Comments pt agreeable to do PT Therapy Pain Assessment Pain When Pain Assessed At Rest Pain Present Pain Present Pain Reported M4 PT-IP Mobility and Gait Start: 08/06/19 13:19 Freq: NEEDED Status: Active Protocol: Document 08/06/19 13:22 LJ (Rec: 08/06/19 14:20 LJ [id number]) PT-Transfer Assessment Sit to and From Stand Sit to and from Stand Contact Guard Assistance,1 Person Assistance,Use of Upper Extremities Equipment Orthotic/Prosthetic Devices or Brace: No Transfers Transfer Destination Chair Transfer Ability Level of Assist Contact Guard Assistance,1 Person Assistance,Use of Upper Extremities Comments Mobility Comments Pt sitting in chair upon arrival. She required instructions for scooting to the edge of the chair and hand placement prior to standing. Once standing she needed cuing to place foot on floor prior to attempting to take a step. When returning back to the chair she was less confused and sat into the chair with control then lifted up the foot rest on her own. Gait Assessment Gait Gait Assistance Required: Contact Guard Assist,1 Person Assist Distance (Feet) 100 Able to Maintain Weight Bearing Status Yes During Gait Assistive Devices Assistive Device Gait Belt,Front Wheeled Walker Orthotic/Prosthetic Devices or Brace: No Gait Deviations General Gait Pattern Antalgic,Decreased Stride Length,Decreased Feet Clearance,Step-to Gait Factors Limiting Gait Function Factors Limiting Gait Function Decreased Activity Tolerance, Decreased Strength,Difficulty Following Directions,Limited Range of Motion,Pain,Poor Balance,Poor Safety Awareness M5 PT-IP Objective Assessments Start: 08/06/19 13:19 Freq: NEEDED Status: Active Protocol: Document 08/06/19 11:30 AB (Rec: 08/06/19 13:47 AB [id number]) Orientation Orientation/Cognition Level of Alertness Alert Orientation Name,Date,Place,Situation Safety Awareness Decreased Safety Awareness Memory Description Short Term Impaired Gross Range of Motion Lower Extremity ROM Assessment Left Impaired Impairments L knee flexion ~ 90 deg Strength Lower Extremity Strength Assessment Left Impaired Hip 3+/5 Knee 3+/5 Sensation Assessment Sensation Gross Sensation WNL Muscle Tone Muscle Tone WNL Yes M6 PT-IP Treatment Start: 08/06/19 13:19 Freq: NEEDED Status: Active Protocol: Document 08/06/19 13:22 MAYNOR (Rec: 08/06/19 14:20 LJ [id number]) Physical Therapy Treatment Exercises Exercises Ankle Pumps,Quad Sets,Straight Leg Raises Education Education Provided Precautions,Weight Bearing Status,Safety M7 PT-IP Assessment and Plan Start: 08/06/19 13:19 Freq: NEEDED Status: Active Protocol: Document 08/06/19 13:22 MAYNOR (Rec: 08/06/19 14:20 LJ [id number]) PT Summary Assessment and Plan Potential Rehabilitation Potential Good Status of Condition at Evaluation Stable Summary Impairments Pain,ROM,Strength,Balance, Coordination,Sensation,Tone, Cognition,Bed Mobility, Transfers,Gait,Activity Tolerance Assessment Summary Pt required CGA with mobility and gait with frequent cues for tasks. She demonstrated ability to perform LE exercises but was still confused and thought she couldn't do them properly. Her gait pattern was good and she managed the FWW adequately but her safety awareness is decreased. She is confused about the stair situation getting into friend's house but wanted to trial the stairs here at the hospital. Next treatment assess pt on platform step and stairs, which appears to be the closest to her friend's situation at her home Goals Bed Mobility Goal Independent Transfer Goal Independent,Front Wheeled Walker Gait Goal Independent,Front Wheel Walker Other Goals up/down 2 platform steps using FWW SBA up/down 4 steps L rail ascending SBA Days to Meet Goals 10 Frequency of Treatment Frequency Of Treatment Twice a Day Treatment Plan Physical Therapy Treatment Plan Bed Mobility Training,Transfer Training,Gait Training, Therapeutic Exercise,Balance Retraining,Post Op Education, Discharge Planning,Hot or Cold Pack,Neuromuscular Re-ed, Coordination Retraining,Manual Therapy Recommendations To Nursing Amount of Assist Needed 1 Person Assist Discharge Recommendations PT Discharge Recommendations Home with 06/01 Assist,Home Health Transportation Needs at Discharge Private Vehicle
--- NOTE | 2019-08-06 15:14 | PM.CHAP ---
patient expressed distress about sister who has special needs. Patient is support person for her. also concern about patient mother who has dementia.
[2019-08-06 15:33] VITALS: BP 134/65; PULSE 72; RESP 18; TEMP 37.1; O2SAT 97
[2019-08-06] MEDS: OXYCODONE IR 5 MG TABLET PO (16:24)
--- NOTE | 2019-08-06 18:05 | PC.NURSE ---
Pt refused H & H lab draw: I don't want anymore needles.
[2019-08-06 20:14] VITALS: BP 130/68; PULSE 69; RESP 16; TEMP 36.8; O2SAT 96
[2019-08-06] MEDS: DOCUSATE 100 MG CAPSULE PO (20:15)
--- NOTE | 2019-08-06 21:48 | PC.NURSE ---
Pulled HV per MD request; no output this shift. Small amount of blood at drain site.
[2019-08-07 01:15] VITALS: BP 137/76; PULSE 68; RESP 16; TEMP 37.3; O2SAT 94
[2019-08-07] MEDS: IBUPROFEN 400 MG TABLET PO ×3 (01:21→08:52)
--- NOTE | 2019-08-07 04:42 | PC.NURSE ---
Patient is alert and oriented. Patient has no complaints of pain, using scheduled ibuprofen. VSS. Aquacell dressing is clean/dry/intact. CMS intact. SCD's applied. IS encouraged. Bed is low and locked, bed alarm on, call light within reach. 0115. Patient has had quite a bit of drainage from hemovac site on mayito bandage. Site inspected and re-enforced w/ 4x4's and tape.
[2019-08-07 05:25] VITALS: BP 129/70; PULSE 68; RESP 18; TEMP 37; O2SAT 99
[2019-08-07 08:00] VITALS: BP 119/64; PULSE 65; RESP 16; TEMP 36.7; O2SAT 100
--- NOTE | 2019-08-07 08:15 | P.DS_ITS ---
History of Present Illness History of Present Illness Date Patient Seen: 08/07/19 Time Patient Seen: 08:15 Chief complaint: [id number] Left Total Knee Arthroplasty *OPB* Narrative: Please see HPI previously recorded in the chart. Discharge Providers Provider Date of admission: 08/05/19 11:37 Discharge Date: 08/07/19 Primary care physician: Cici Lino Consults: 08/05/19 12:26 Consult to Anesthesiology Routine Comment: Consulting Provider: Anesthesiologist Reason for consultation: Regional block for post operative pain control 08/05/19 16:35 Consult to Discharge Planning Routine Comment: Consult to Physical Therapy Evaluate & Treat Comment: Physician Instructions: postop TKA protocol Consult to Respiratory Therapy Evaluate & Treat Comment: Physician Instructions: Evaluate and treat 08/06/19 00:43 Consult to Hospitalist Service Routine Comment: Consulting Provider: Noam Rosado Reason for consultation: Possible stroke Has provider been notified: Yes 08/06/19 01:38 Consult to Speech Therapy Evaluate & Treat Comment: Physician Instructions: Evaluate and treat Discharge provider: Daniella Russ PA-C Summary Hospital Course Discharge Diagnosis: s/p Left total knee arthroplasty Hospital Course: Patient is a 59 year old female who has had progressively worsening left knee pain with radiographic changes consistent with arthritis. Non-operative management has failed and the patient has requested total knee replacement. The risks, benefits and alternatives to surgery were discussed with the patient prior to proceeding. Risks discussed included, but were not limited to, failure to relieve pain, stiffness, infection, nerve damage, deep venous thrombosis, pulmonary embolism, stroke, coma, heart attack, permanent paralysis and , as well as the potential need for eventual revision of the prosthetic. She was then taken to the operating room where she underwent a left total knee arthroplasty with Dr. Ferraro which she tolerated well without complications. Overnight on POD#0 she had some dysarthria and extremity numbness and tingling after administration of narcotics. Hospitalist was consulted. She underwent a stroke work up including CT and MR which were negative. Labs were within normal limits except for elevated lipids. Hospitalist recommended statin which patient refused. Patient declined echocardiogram and speech eval. Symptoms improved without intervention and hospitalist felt she was medically stable. Narcotics were avoided for the remainder of her hospitalization and she will be discharged with recommendations of Ibuprofen and Tylenol both of which she has at home. Pain has been well controlled with this regimen. She has mobilized successfully with PT. Voiding appropriately and tolerating a normal diet. On POD#2 she was deemed stable for discharge to home. Status at Discharge Cognitive/behavioral status at discharge: oriented Functional status at discharge: uses cane/walker Overall status at discharge: patient is progressing back to baseline Exam Vital Signs (past 8 hours): - 08/07/19 01:15 02 05:25 Temperature 99.2 F 98.6 F Pulse Rate 68 68 Respiratory Rate 16 18 Blood Pressure 137/76 129/70 Pulse Oximetry 94 99 Oxygen Delivery Method Room Air Oxygen Flow Rate 0 Narrative Exam Narrative: 59 year old female resting comfortably in bed, alert and orient ed in no acute distress. Dressing in place over left knee is CDI. Patient able to flex and extend the ankle. Palpable pedal pulse. Soft, compressible calves. Objective Labs Result Diagrams: 08/06/19 01:43 08/06/19 01:43 Discharge Plan Discharge Plan Patient Disposition: Home Discharge orders & Medications Prescriptions: New acetaminophen 325 mg Tablet 650 mg PO TID Qty: 40 RF: 0 aspirin 81 mg Tablet,Delayed Release (Dr/Ec) 81 mg PO BID Qty: 40 RF: 0 ibuprofen 400 mg Tablet 400 mg PO Q4HR Qty: 40 RF: 0 docusate sodium [DOK] 100 mg Capsule 100 mg PO BID Qty: 40 RF: 0 Continued vitamin B complex tablet 1 tab PO DAILY RF: 0 cholecalciferol (vitamin D3) 1,000 unit capsule 2,000 unit PO DAILY RF: 0 Discontinued naproxen 500 mg Tablet 500 mg PO DAILY PRN (Reason: Pain) RF: 0 Follow up/Referrals: Zahida Ferraro MD [Physician] - Diet/Activity/Treatments Diet: Diet as Tolerated Activity: Use a walker or cane for support. Cold/Heat Therapy: Ice packs as needed. Other treatments: Follow Joint Path guide Skin/Wound/Dressing Care Dressing: Leave dressing in place. Call if dressing becomes saturated or soiled. Visit Report/Discharge Packet Instructions: DI for Knee Replacement Discharge Data Primary Care Provider: Cici Lino Discharges patient from system. Discharge Date/Time: 08/07/19 11:59 Quality VTE Deep Vein Thrombosis/Pulmonary Embolism Present on Admission: No
[2019-08-07] MEDS: ASPIRIN EC 81 MG TABLET PO (08:52)
[2019-08-07] MEDS: ACETAMINOPHEN 325 MG TABLET 650 MG PO (08:53)
--- NOTE | 2019-08-07 09:29 | CM.DANOTE ---
Discharge Planning/Care Management CM Discharge Assessment Start: 08/07/19 09:27 Freq: Status: Active Protocol: Document 08/07/19 09:28 ITV (Rec: 08/07/19 09:28 ITV [id number]) Discharge Planning Assessment Advance Directives? No History Provided By Medical Record Prior Living Arrangements House Household Members none Is patient alert and oriented? Yes Review Status In Process Pre-Anesthesia Assessment Start: 07/26/19 08:44 Freq: Status: Active Protocol: Document 07/26/19 08:44 CAB (Rec: 07/26/19 09:38 CAB [id number]) Pre-Anesthesia Assessment PAC Comment Introvert, flat affect, ?delay ? Patient Information Reviewed Via Phone Assessment Assessment Completed With Patient H&P Completed Within 30 Days Yes Diagnostic Results BMP/CMP,EKG,Urinalysis Comment Labs(no CBC) scanned to record . EKG @ 06/15/19 Primary Care Provider None Seen Specialist in Last 12 Months Yes Specialist Seen Opthamologist/Refinish Technician, Orthopedist,Implementation Engineer Primary Language Lao Cutter Grind Tool Technician Required No Height 165.1 cm Weight 71.668 kg Body Mass Index (BMI) 26.2 Hearing Ability Normal Visual Assist Magnifying Glass Dentition Type Teeth, Natural Present Barriers to Learning None,Memory Other Aids No Hx Anesthesia Reactions Yes: Nausea w/last knee surgery' Hx Family Anesthesia Reaction No: Adopted Hx Malignant Hyperthermia No Hx Blood Transfusions No Hx Blood Transfusion Reaction No Anesthesia Review Requested No alcohol intake current alcohol intake frequency holidays/special occasions only Smoking Status Never smoker Substance Use Type does not use Pain Present Pain Reported Musculoskeletal Symptoms Abnormal Gait,Back Pain, Difficulty Walking,Joint Pain, Neck Pain History of Falling (Recent or History of No ) Patient is completely paralyzed or No completely immobile Mental Status Oriented to own ability Is patient on oxygen? No Does patient have CEBALLOS/SOB No Hx Sleep Apnea No Currently Taking a Beta Slime No Can You Climb a Flight of Stairs Without Yes SOB Hx Chest Pain No Hx SOB No Hx Syncope or Dizziness Yes: Occasional vertigo Anti-Coagulant Therapy No Has a Set Up Machinist No Cardiac Testing No Hx Pacemaker/ICD No Pacemaker Rep Required? No Cardiac Clearance Received Not Applicable Diet Type At Home Regular dysphagia No Bladder Pattern Nocturia Urinary Catheter Present No Hx Urinary Self Catheterization No Diabetes No HgbA1C 5.5 Date 07/07/19 Patient No Lactating No Hx Drug Resistant Organism No Presence of External or Internal Medical No Devices Have you traveled outside the [place] in the last 30 days? Marital Status Single Lives With none Prior Living Arrangements House Number of Floors (Floors) Two Floors Support System Friend(s) Does the Patient Have Assistance After Yes: Pt plans to stay at Surgery friend's house (80 years old) Patient Discharge Plan Description Return Home Comment Pt advised 1 night length of stay per surgeon Feels Safe in Current Environment Yes Been Physically Hurt or Threatened By a No Person in Current Environment Do you have thoughts of harming yourself None or others? Are you currently considering suicide? No Do you have a plan to hurt yourself or No Plan others? Do You Have Any Spiritual Beliefs That No May Affect Your HC Choices? Do You Have Any Cultural Practices That No May Affect Your HC Choices? Spiritual Referral None Comment Ari Who Can We Speak to About Patient's Care Family, friends Identifying Code for Release of Patient Declines to issue Information Health Care Proxy/Next of Kin Jeimy Estrella (Friend), Galina (Friend) Health Care Proxy Phone Number Jeimy: [phone] Galina: pt to update dos Emergency Contact Name Jeimy Estrella (Friend), Galina (Friend) Emergency Contact Phone Number Jeimy: [phone] Galina: pt to update dos Advance Directives? No Power of Command Center Analyst No PAC Instructions Do not shave/clip surgical site,Durable medical equipment ,Medications to take/avoid, Nasal antibiotic,No ETOH/ petroleum product on skin DOS, NPO,Post-op transportation,Pre -surgical wash,Sturdy shoes/ comfortable clothes,Do not bring valuables and remove jewelry
--- NOTE | 2019-08-07 10:32 | CM.DANOTE ---
Addendum entered by Natasha Reeves LPN 08/07/19 10:40: Met with pt and introduced self and role. Pt was in process of having therapy with CLIENT TECHNICAL SUPPORT ASSOCIATE Wendi who confirmed that pt was doing very well. She will be going to her friend's home while she recovers but Wendi says no caregiver training will be needed as pt is managing well on her own. RN Neelam agrees with same. Says pt will be leaving about 1100. P: home to friend Jazzy Estrella's home today. Orthopedic followup as per their protocol. Original Note: Discharge Planning/Care Management DCP: case received yesterday, EMR reviewed. Discussed in Team Rounds. Pt is a 59 year old female who admitted 08/05 for a planned L TKA. Payer[facility]Medicaid Surgeon: Dr. Ferraro PT was ordered. Decision made to follow up today with pt. Discussed case again this morning in rounds. PT has cleared her for d/c to her friends home with ? recommendation of . A d/c order from ortho PA is in...will check in with pt now. CM Discharge Assessment Start: 08/07/19 09:27 Freq: Status: Active Protocol: Document 08/07/19 09:28 ITV (Rec: 08/07/19 09:28 ITV [id number]) Discharge Planning Assessment Advance Directives? No History Provided By Medical Record Prior Living Arrangements House Household Members none Is patient alert and oriented? Yes Review Status In Process Pre-Anesthesia Assessment Start: 07/26/19 08:44 Freq: Status: Active Protocol: Document 07/26/19 08:44 CAB (Rec: 07/26/19 09:38 CAB [id number]) Pre-Anesthesia Assessment PAC Comment Introvert, flat affect, ?delay ? Patient Information Reviewed Via Phone Assessment Assessment Completed With Patient H&P Completed Within 30 Days Yes Diagnostic Results BMP/CMP,EKG,Urinalysis Comment Labs(no CBC) scanned to record . EKG @ 06/15/19 Primary Care Provider None Seen Specialist in Last 12 Months Yes Specialist Seen Opthamologist/Manager Recruitment, Orthopedist,Court Interpreter Primary Language B[place]ian Waste Disposal Attendant Required No Height 165.1 cm Weight 71.668 kg Body Mass Index (BMI) 26.2 Hearing Ability Normal Visual Assist Magnifying Glass Dentition Type Teeth, Natural Present Barriers to Learning None,Memory Other Aids No Hx Anesthesia Reactions Yes: Nausea w/last knee surgery'09 Hx Family Anesthesia Reaction No: Adopted Hx Malignant Hyperthermia No Hx Blood Transfusions No Hx Blood Transfusion Reaction No Anesthesia Review Requested No alcohol intake current alcohol intake frequency holidays/special occasions only Smoking Status Never smoker Substance Use Type does not use Pain Present Pain Reported Musculoskeletal Symptoms Abnormal Gait,Back Pain, Difficulty Walking,Joint Pain, Neck Pain History of Falling (Recent or History of No ) Patient is completely paralyzed or No completely immobile Mental Status Oriented to own ability Is patient on oxygen? No Does patient have CEBALLOS/SOB No Hx Sleep Apnea No Currently Taking a Beta Slime No Can You Climb a Flight of Stairs Without Yes SOB Hx Chest Pain No Hx SOB No Hx Syncope or Dizziness Yes: Occasional vertigo Anti-Coagulant Therapy No Has a Model Maker Fiberglass No Cardiac Testing No Hx Pacemaker/ICD No Pacemaker Rep Required? No Cardiac Clearance Received Not Applicable Diet Type At Home Regular dysphagia No Bladder Pattern Nocturia Urinary Catheter Present No Hx Urinary Self Catheterization No Diabetes No HgbA1C 5.5 Date 07/07/19 Patient No Lactating No Hx Drug Resistant Organism No Presence of External or Internal Medical No Devices Have you traveled outside the [facility] States in the last 30 days? Marital Status Single Lives With none Prior Living Arrangements House Number of Floors (Floors) Two Floors Support System Friend(s) Does the Patient Have Assistance After Yes: Pt plans to stay at Surgery friend's house (80 years old) Patient Discharge Plan Description Return Home Comment Pt advised 1 night length of stay per surgeon Feels Safe in Current Environment Yes Been Physically Hurt or Threatened By a No Person in Current Environment Do you have thoughts of harming yourself None or others? Are you currently considering suicide? No Do you have a plan to hurt yourself or No Plan others? Do You Have Any Spiritual Beliefs That No May Affect Your HC Choices? Do You Have Any Cultural Practices That No May Affect Your HC Choices? Spiritual Referral None Comment Ari Who Can We Speak to About Patient's Care Family, friends Identifying Code for Release of Patient Declines to issue Information Health Care Proxy/Next of Kin Jeimy Estrella (Friend)Galina (Friend) Health Care Proxy Phone Number Jeimy: [phone] Galina: pt to update dos Emergency Contact Name Jeimy Estrella (Friend)Galina (Friend) Emergency Contact Phone Number Jeimy: [phone] Galina: pt to update dos Advance Directives? No Power of Hr Coordinator No PAC Instructions Do not shave/clip surgical site,Durable medical equipment ,Medications to take/avoid, Nasal antibiotic,No ETOH/ petroleum product on skin DOS, NPO,Post-op transportation,Pre -surgical wash,Sturdy shoes/ comfortable clothes,Do not bring valuables and remove jewelry
--- NOTE | 2019-08-07 11:09 | PT.IPTN ---
Current Diagnoses Dysarthria and anarthria (08/05/19) Surgery Performed Operation Date: 08/05/19 13:45 Actual Procedures p Total Knee Arthroplasty & Right foot plantar cortisone injection(Left) - Zahida Ferraro MD Physical Therapy Treatment Note M2 PT-IP Current Condition Start: 08/06/19 13:19 Freq: NEEDED Status: Active Protocol: Document 08/06/19 11:30 AB (Rec: 08/06/19 13:47 AB [id number]) Physical Therapy Current Condition Current Condition Evaluation Date 08/06/19 Treatment Diagnosis s/p L TKA; difficulty in walking Onset Date 08/05/19 Weight Bearing Status Weight Bearing Status Weight Bear as Tolerated Allowed Weight Bearing Amount (enter % WBAT LLE or #) (%) M3 PT-IP Subjective Start: 08/06/19 13:19 Freq: NEEDED Status: Active Protocol: Document 08/07/19 10:15 CLB (Rec: 08/07/19 11:30 CLB [email or web address]) Subjective Physical Therapy Visit Type Type Treatment Note Visit Start Time 10:15 Visit Stop Time 11:09 Total Visit Minutes 54 Number of ACID FILLER Visits 2 Physical Therapy Visit Comments Patient Comments pt agreeable to do PT Therapy Pain Assessment Pain When Pain Assessed During Exercise Pain Present Pain Present Pain Reported Location Left Knee Intensity 5 Scale Used 2/10 at rest, 4/10 w/gait Pain Management Techniques Apply Cold,Re-positioning M4 PT-IP Mobility and Gait Start: 08/06/19 13:19 Freq: NEEDED Status: Active Protocol: Document 08/07/19 10:15 CLB (Rec: 08/07/19 11:30 CLB [email or web address]) PT-Bed Mobility Assessment Supine to Sit Supine to Sit Standby Assistance Scooting Scooting to Edge of Bed Standby Assistance PT-Transfer Assessment Sit to and From Stand Sit to and from Stand Standby Assistance,1 Person Assistance,Use of Upper Extremities Equipment Transfer Assistive Device Gait Belt,Front Wheeled Walker Orthotic/Prosthetic Devices or Brace: No Transfers Transfer Destination Chair Transfer Ability Level of Assist Standby Assistance,Use of Upper Extremities Comments Mobility Comments Pt able to use cane to get LLE off bed, pt was then able to scoot to edge of bed SBA. Pt required SBA with cues for hand placement on bed to push up for safety. Pt ambulated in [place] then returned to chair. Pt was able to perform stair training on platform step. Pt then able to get lower body dressed with assist putting on left shoe. Pt left in chair with ASSEMBLER FOR [employer] OVER MACHINE and student RN present. Gait Assessment Gait Gait Assistance Required: Standby Assistance,1 Person Assist Distance (Feet) 150 Able to Maintain Weight Bearing Status Yes During Gait Assistive Devices Assistive Device Gait Belt,Front Wheeled Walker Orthotic/Prosthetic Devices or Brace: No Gait Deviations General Gait Pattern Antalgic,Decreased Stride Length,Decreased Feet Clearance Factors Limiting Gait Function Factors Limiting Gait Function Decreased Activity Tolerance, Decreased Strength,Difficulty Following Directions,Limited Range of Motion,Pain,Poor Balance Comments Gait Comments Pt ambulated ~150 ft with small step-thru gait pattern. Pt required cues for heel/toe gait and was able to correct as needed. Pt has steady gait and good safety awareness. Stair Climbing Assessment Evaluation Level of Assist On Stairs Standby Assistance,Contact Guard Assistance,1 Person Assistance Devices Stair Climbing Assistive Devices Front Wheel Walker Technique/Endurance Stair Climbing Direction Ascend and Descend Stair Climbing Technique Step to Step Number of Steps Climbed 1 Stair Climbing Set # Repetitions (reps) 2 Comments Stair Climbing Comments After demonstration pt was able to climb platform step up /down twice once requiring CGA then able to perform SBA. M5 PT-IP Objective Assessments Start: 08/06/19 13:19 Freq: NEEDED Status: Active Protocol: Document 08/06/19 11:30 AB (Rec: 08/06/19 13:47 AB [id number]) Orientation Orientation/Cognition Level of Alertness Alert Orientation Name,Date,Place,Situation Safety Awareness Decreased Safety Awareness Memory Description Short Term Impaired Gross Range of Motion Lower Extremity ROM Assessment Left Impaired Impairments L knee flexion ~ 90 deg Strength Lower Extremity Strength Assessment Left Impaired Hip 3+/5 Knee 3+/5 Sensation Assessment Sensation Gross Sensation WNL Muscle Tone Muscle Tone WNL Yes M6 PT-IP Treatment Start: 08/06/19 13:19 Freq: NEEDED Status: Active Protocol: Document 08/07/19 10:15 CLB (Rec: 08/07/19 11:30 CLB [email or web address]) Physical Therapy Treatment Exercises Exercises Ankle Pumps,Quad Sets,Heel Slides,Straight Leg Raises, Short Arc Quads,Passive Knee Extension Hang Education Education Provided Precautions,Weight Bearing Status,Safety M7 PT-IP Assessment and Plan Start: 08/06/19 13:19 Freq: NEEDED Status: Active Protocol: Document 08/07/19 10:15 CLB (Rec: 08/07/19 11:30 CLB [email or web address]) PT Summary Assessment and Plan Potential Rehabilitation Potential Good Status of Condition at Evaluation Stable Summary Impairments Pain,ROM,Strength,Balance, Coordination,Sensation,Tone, Cognition,Bed Mobility, Transfers,Gait,Activity Tolerance Assessment Summary Pt improved with all mobilty this session. Pt required SBA with use of cane to assist LLE out of bed, SBA for sit-stand and gait. Pt able to climb stairs first with CGA then able to climb step with SBA. Pt has steady gait and good safety awareness and will stay with friend Jeimy until she is able to return home alone. Pt seems able to d/c home with friend Jeimy to assist pt when medically stable. Goals Bed Mobility Goal Independent Transfer Goal Independent,Front Wheeled Walker Gait Goal Independent,Front Wheel Walker Gait Distance 150 Other Goals up/down 2 platform steps using FWW SBA up/down 4 steps L rail ascending SBA Days to Meet Goals 10 Frequency of Treatment Frequency Of Treatment Twice a Day Treatment Plan Physical Therapy Treatment Plan Bed Mobility Training,Transfer Training,Gait Training, Therapeutic Exercise,Balance Retraining,Post Op Education, Discharge Planning,Hot or Cold Pack,Neuromuscular Re-ed, Coordination Retraining,Manual Therapy Recommendations To Nursing Amount of Assist Needed Standby Assistance Discharge Recommendations PT Discharge Recommendations Home with 24/ Assist,Home Health Transportation Needs at Discharge Private Vehicle
--- NOTE | 2019-08-07 11:50 | PC.NURSE ---
Patient discharged home in POV with friend and all belongings. IV and telemetry removed. RX for docusate provided. Pt educated on s/sx of stroke (sudden weakness, numbness, difficulty speaking, severe headache, blurred vision) and to call 911 at onset. Discussed knee surgery instructions including weight bearing as tolerated, ice and elevate, call doctor's office if dressing becomes saturated or for signs of infection (redness, swelling, fever, n/v) other [facility]man f/u with provider as scheduled. Pt stated no further questions or concerns. Verified teaching by Hawa TEAGUE
== END 2019-08-07 11:59 | disposition home or self-care (01) | DRG 950 ==
LOC: OR 12:08 → AC 12:09
PROVIDERS: Nurse Practitioner Adult Health; Admitting Provider Orthopaedic Surgery; PCP Physician Assistant Medical; Referring Provider Orthopaedic Surgery; Visit Provider Orthopaedic Surgery
PROC: 0SRD0JZ Replacement of Left Knee Joint with Synthetic Substitute, Open Approach (ICD-10-PCS; CPT 27447; principal; 2019-08-05 13:45)
DX: R47.1 Dysarthria and anarthria (principal); M17.12 Unilateral primary osteoarthritis, left knee; M72.2 Plantar fascial fibromatosis; R13.10 Dysphagia, unspecified; R20.0 Anesthesia of skin; E78.5 Hyperlipidemia, unspecified
CPT/HCPCS: 36415; 70450; 70496; 70498; 70548; 70553; 73560; 80048; 80061; 84443; 85025; 85610; 85730; 92522; 97110; 97116; 97161; 97530; C1776; A9579; C9290; J0690; J1100; J1170; J2250; J2405; J2704; J3010; Q9967

== ENCOUNTER → 2020-01-09 13:21 | Outpatient (CLI) | payer OTHER, MEDICAID, SELFPAY ==
[2019-12-22 14:57] VITALS: BMI 26.2
[2020-01-09 15:40] LABS: Adenovirus F 40/41 Not Detected (Not Detect); Astrovirus Not Detected (Not Detect); Campylobacter Not Detected (Not Detect); Clostridium difficile toxin AB Not Detected (Not Detect); Cryptosporidium Not Detected (Not Detect); Cyclospora cayetanensis Not Detected (Not Detect); Entamoeba histolytica Not Detected (Not Detect); Enteroaggregative E.coli Not Detected (Not Detect); Enteropathogenic E.coli Not Detected (Not Detect); Enterotoxigenic E.coli It/st Not Detected (Not Detect); Giardia lamblia Not Detected (Not Detect); Norovirus GI/GII Not Detected (Not Detect); Plesiomonsa shigelloides Not Detected (Not Detect); Rotavirus A Not Detected (Not Detect); Salmonella Not Detected (Not Detect); Sapovirus Not Detected (Not Detect); Shiga-like toxin-prod E.coli Not Detected (Not Detect); Shigella/Enteroinvasive E.coli Not Detected (Not Detect); Vibrio Not Detected (Not Detect); Vibrio cholerae Not Detected (Not Detect); Yersinia enterocolitica Not Detected (Not Detect)
[2020-01-11 10:36] LABS: H. Pylori Antigen Stool Negative (Negative)
== END ==
PROVIDERS: PCP Physician Assistant Medical; Referring Provider Surgery; Visit Provider Surgery
DX: R19.7 Diarrhea, unspecified (principal)
CPT/HCPCS: 87338; 87507

== ENCOUNTER → 2025-05-10 14:56 | Outpatient (CLI) | payer MEDICARE, SELFPAY ==
[2025-02-21 12:01] VITALS: BMI 26.2
--- NOTE | 2025-05-10 14:58 | DI.MG.S_ITS ---
MM screening mammo BI: 05/10/2025. BI-RADS: 1 CLINICAL: 65-year old female for bilateral screening mammogram. Tyrer-Cuzick lifetime risk of 12.7%. Current reported family history of breast cancer: sister. PRIOR EXAMS 06/04/2023, 04/13/2021. MAMMOGRAPHY TECHNIQUE: 2D and 3D (tomosynthesis) digital mammographic views obtained, with additional images as needed for full coverage. Current study was also evaluated with a Computer Aided Detection (CAD) system. DENSITY C. The breasts are heterogeneously dense, which may obscure small masses. MAMMOGRAPHY FINDINGS Bilateral: No suspicious mass, asymmetry, microcalcification, or other abnormality seen. IMPRESSION: * No evidence of malignancy. RECOMMENDATIONS Bilateral * Annual screening mammography. OVERALL ASSESSMENT CATEGORY BI-RADS-1: Negative. [employer] recommends annual screening mammography beginning at age 40 for women with average risk of breast cancer. ELECTRONICALLY SIGNED: Librado Tidwell M.D. on 05/11/2025 at 09:37:43 AM PT Interpreting Station ID: [id number]
== END ==
PROVIDERS: PCP Physical Medicine & Rehabilitation; Referring Provider Physical Medicine & Rehabilitation; Visit Provider Physical Medicine & Rehabilitation
DX: Z12.31 Encounter for screening mammogram for malignant neoplasm of breast (principal); R92.333 Mammographic heterogeneous density, bilateral breasts; Z80.3 Family history of malignant neoplasm of breast
CPT/HCPCS: 77063; 77067